=== PATIENT | male | born 1990 | race Caucasian/White ===

== ENCOUNTER 2018-01-30 15:31 | Emergency (ER) | payer BC ==
[2018-01-30 15:45] VITALS: BP 119/76; PULSE 77; RESP 18; TEMP 98.1
--- NOTE | 2018-01-30 17:44 | ED ---
General Adult HPI - General Chief complaint: Fall Stated complaint: rib injury riding snowboard Time Seen by Provider: 01/30/18 17:11 Source: patient, RN notes reviewed Mode of arrival: ambulatory Limitations: no limitations - History of Present Illness Initial comments: Patient's 27-year-old male presents into the emergency room today with a chief complaint of left-sided rib pain. Patient does admit to a snowboarding 4 days ago and landed hard on the left side. Patient states that he's had some pain to the left anterior ribs. He does admit that with certain movements the pain was worse patient admits that he sneezed earlier today had increased pain but then pain seemed to be feeling better afterwards. He states he is able to move better at this time. He states it is still locally tender on palpation to the anterior left rib. Patient denies any recent fever, chills, shortness of breath , chest pain, back pain, abdominal pain, nausea or vomiting, constipation or diarrhea, headaches or visual changes, or any other complaints. - Related Data Home Medications Medication Instructions Recorded Confirmed Ibuprofen [Motrin Ib] 600 mg PO Q6H PRN 01/30/18 01/30/18 Previous Rx's Medication Instructions Recorded Ibuprofen [Motrin] 600 mg PO Q6HR PRN #30 day 01/30/18 Allergies Allergy/AdvReac Type Severity Reaction Status Date / Time No Known Allergies Allergy Verified 01/30/18 15:42 Review of Systems ROS Statement: Those systems with pertinent positive or pertinent negative responses have been documented in the HPI. ROS Other: All systems not noted in ROS Statement are negative. Past Medical History Past Medical History: No Reported History History of Any Multi-Drug Resistant Organisms: None Reported Past Surgical History: Tonsillectomy Past Psychological History: No Psychological Hx Reported Smoking Status: Never smoker Past Alcohol Use History: Rare Past Drug Use History: None Reported General Exam - General Exam Comments Initial Comments: General: The patient is awake and alert, in no distress, and does not appear acutely ill. Eye: Pupils are equal, round and reactive to light, extra-ocular movements are intact. No nystagmus. There is normal conjunctiva bilaterally. No signs of icterus. Ears, nose, mouth and throat: There are moist mucous membranes and no oral lesions. Neck: The neck is supple, there is no tenderness or JVD. Cardiovascular: There is a regular rate and rhythm. No murmur, rub or gallop is appreciated. Respiratory: Lungs are clear to auscultation, respirations are non-labored, breath sounds are equal. No wheezes, stridor, rales, or rhonchi. Gastrointestinal: Soft, non-distended, non-tender abdomen without masses or organomegaly noted. Musculoskeletal: Normal ROM. Mild tenderness to the left anterior ribs. No step-off or deformity. No bruising. Strength 5/5. Sensation intact. Pulses equal bilaterally 2+. Neurological: A&O x 3. CN II-XII intact, There are no obvious motor or sensory deficits. Coordination appears grossly intact. Speech is normal. Skin: Skin is warm and dry and no rashes or lesions are noted. Psychiatric: Cooperative, appropriate mood & affect, normal judgment. Limitations: no limitations Course Vital Signs 01/30/18 15:42 Temperature 98.1 F Pulse Rate 77 Respiratory 18 Rate Blood Pressure 119/76 O2 Sat by Pulse 98 Oximetry Medical Decision Making - Medical Decision Making 27-year-old male presented to the emergency room with the chief complaint of left anterior rib pain. Patient does admit injury from snowboarding 4 days ago. States pain improved after sneezing earlier today. Patient chest x-ray reviewed is negative for any acute abnormality. Results were discussed with the patient. Patient will be discharged home. Patient be treated with anti- inflammatories. Advised return if symptoms increase or worsen. Disposition Clinical Impression: Fall, Rib contusion Disposition: HOME SELF-CARE Condition: Good Instructions: Rib Contusion (ED) Additional Instructions: Please use medication as discussed. Please follow-up with family doctor in the next 2 days of symptoms have not improved. Please return to emergency room if the symptoms increase or worsen or for any other concerns. Prescriptions: Ibuprofen [Motrin] 600 mg PO Q6HR PRN #30 day PRN Reason: Pain Is patient prescribed a controlled substance at d/c from ED?: No Referrals: None,Stated [Primary Care Provider] - 1-2 days Time of Disposition: 18:30
--- NOTE | 2018-01-30 18:32 | XR ---
EXAMINATION: XR chest 2V DATE AND TIME: 01/30/2018 5:30 PM CLINICAL INDICATION: L rib pain TECHNIQUE: PA and lateral COMPARISON: None. FINDINGS: The lungs are clear. The pleural spaces are negative. The cardiac silhouette is not enlarged. The remainder of the mediastinal silhouette is unremarkable. There is no fracture or malalignment. The skeletal structures and soft tissues are negative for acute findings. IMPRESSION: NO ACUTE PROCESS.
== END 2018-01-30 18:37 | disposition home or self-care (01) ==
LOC: EC 15:31
DX: S20.212A Contusion of left front wall of thorax, initial encounter (principal); V00.311A Fall from snowboard, initial encounter; Y93.23 Activity, snow (alpine) (downhill) skiing, snowboarding, sledding, tobogganing and snow tubing
CPT/HCPCS: 71046; 99283

== ENCOUNTER → 2022-12-26 | Outpatient (CLI) | payer OTHER ==
--- NOTE | 2022-12-26 14:32 | XR ---
EXAMINATION TYPE: XR elbow complete LT DATE OF EXAM: 12/26/2022 2:19 PM CLINICAL INDICATION:Male, 32 years old with history of WORK COMP, M77.02 L ELBOW, S56.812A L ARM; COMPARISON: None TECHNIQUE: The left elbow was examined in AP, lateral, and oblique projections. FINDINGS: No evidence of any acute osseous pathology, joint dislocation, or soft tissue swelling is n oted. No evidence of joint effusion is present. IMPRESSION: No evidence of acute fracture.
--- NOTE | 2022-12-26 14:34 | XR ---
EXAMINATION TYPE: XR forearm LT DATE OF EXAM: 12/26/2022 2:19 PM CLINICAL INDICATION:Male, 32 years old with history of WORK COMP, M77.02 L ELBOW, S56.812A L ARM; [facility] COMPARISON: None TECHNIQUE: XR forearm LT; forearm was examined in AP and lateral projections. FINDINGS: No acute osseous pathology, soft tissue swelling or joint dislocations are seen. IMPRESSION: No evidence of acute fracture.
== END | disposition home or self-care (01) ==
LOC: RADXRMAIN 13:53
PROVIDERS: ATTEND Emergency Medicine
DX: S56.812A Strain of other muscles, fascia and tendons at forearm level, left arm, initial encounter (principal); M77.02 Medial epicondylitis, left elbow; X58.XXXA Exposure to other specified factors, initial encounter

== ENCOUNTER → 2023-01-12 | Outpatient (CLI) | payer OTHER ==
--- NOTE | 2023-01-15 17:44 | MR ---
EXAMINATION TYPE: MR forearm LT wo con DATE OF EXAM: 01/12/2023 COMPARISON: Left forearm radiograph 12/26/2022 HISTORY: Left wrist/forearm/elbow pain for 1 month due to work injury. Marker placed on mass, palmar side, middle of forearm Multiplanar, multisequence images of the left forearm were acquired without contrast. FINDINGS: BONES/MARROW: Normal bone marrow signal. SOFT TISSUES: Myotendinous structures are normal. No anatomic variant. No bursal distention. No fluid collection. NEUROVASCULAR: Visualized neurovascular structures are normal. OTHER: Normal. No mass. No lymphadenopathy. IMPRESSION: Normal MRI left forearm. No mass or fluid collection.
== END | disposition home or self-care (01) ==
LOC: RADMRIMAIN 16:02
PROVIDERS: ATTEND Emergency Medicine
DX: S56.812A Strain of other muscles, fascia and tendons at forearm level, left arm, initial encounter (principal); M77.02 Medial epicondylitis, left elbow

== ENCOUNTER → 2024-01-30 | Outpatient (CLI) | payer BC ==
--- NOTE | 2024-01-30 09:45 | US ---
EXAMINATION TYPE: US abdomen complete DATE OF EXAM: 01/30/2024 COMPARISON: NONE CLINICAL INDICATION: Male, 33 years old with history of R109 Unspecified abdominal pain; LUQ Pain wit h diarrhea TECHNIQUE: Grayscale and color Doppler imaging of the abdomen was performed. FINDINGS: EXAM MEASUREMENTS: Liver Length: 13.0 cm Gallbladder Wall: 0.2 cm CBD: 0.7 cm, color Doppler imaging was utilized to isolate the common bile duct for measurement. Spleen: 13.2 cm Right Kidney: 11.2 x 4.5 x 4.4 cm Left Kidney: 11.4 x 6.6 x 4.5 cm STEAMING CABINET TENDER NOTES: Pancreas: wnl Liver: wnl Gallbladder: wnl Evidence for sonographic Lowe's sign: No CBD: Dilated extrahepatically Spleen: Slightly enlarged Right Kidney: wnl Left Kidney: wnl Upper IVC: wnl Abd Aorta: wnl The liver is homogenous. The intrahepatic portion of the IVC and proximal abdominal aorta are within normal limits. There is no evidence of cholelithiasis. Common bile duct is at the top end of matteo l for size. The visualized portions of the pancreas are homogenous. The spleen is top end of normal for size. Kidneys are symmetric and free of hydronephrosis. No renal lesions are seen. IMPRESSION: 1. No ultrasound evidence for acute process. 2. Common bile duct is at the top end of normal for size. 3. Spleen is at the top end of normal for size. [facility], , 01/30/2024 9:43 AM
== END | disposition home or self-care (01) ==
LOC: RADUSWWP 07:19
PROVIDERS: ATTEND Family Medicine
DX: R16.1 Splenomegaly, not elsewhere classified (principal); R19.7 Diarrhea, unspecified; R10.9 Unspecified abdominal pain
CPT/HCPCS: 76700

== ENCOUNTER → 2024-02-09 | Outpatient (CLI) | payer BC ==
--- NOTE | 2024-02-09 20:03 | CT ---
EXAMINATION TYPE: CT abdomen wo con DATE OF EXAM: 02/09/2024 4:29 PM COMPARISON: 01/30/2024 CLINICAL INDICATION: Male, 33 years old with history of R10.9 UNSPECIFIED ABDOMIN; left side rib pain TECHNIQUE: Axial CT abdomen wo con;Sagittal and coronal reformats were created on a separate worksta tion. Contrast used: mL of , (none if empty) Oral contrast used: without Oral Contrast (none if empty) CT DLP: 259.8 mGycm, Automated exposure control for dose reduction was used. FINDINGS: LOWER CHEST: Unremarkable ABDOMEN LIVER: Unremarkable GALLBLADDER AND BILE DUCTS: Unremarkable. PANCREAS: Unremarkable. SPLEEN: Unremarkable. ADRENAL GLANDS: Unremarkable. KIDNEYS AND URETERS: No evidence of hydronephrosis or renal calculus. The ureters are unremarkable. STOMACH AND BOWEL: No evidence of bowel obstruction. PERITONEUM/RETROPERITONEUM: No evidence of pneumoperitoneum or free fluid. VASCULATURE: No evidence of aortic aneurysm. MUSCULOSKELETAL: No acute osseous abnormalities, the left ribs appear intact. Schmorl's nodes at the level of T9 vertebral body involving the superior and inferior endplate and T10 superior endplate. LYMPH NODES: No gross evidence for lymphadenopathy. Right lower quadrant mesenteric enlarged lymph no elizabeth measuring up to 11 mm SOFT TISSUE/ABDOMINAL WALL: Unremarkable IMPRESSION: 1. No evidence or left upper quadrant acute process to explain the patient's pain. No rib fractures. 2. Schmorl nodes noted at the level of T9 and T10. Consider evaluation with MRI thoracic spine to ev aluate for bony edema. [facility], , 02/09/2024 8:00 PM
== END | disposition home or self-care (01) ==
LOC: RADCTMAIN 15:51
PROVIDERS: ATTEND Family Medicine
DX: R10.9 Unspecified abdominal pain (principal); R07.81 Pleurodynia
CPT/HCPCS: 74150

== ENCOUNTER → 2024-03-22 | Outpatient (CLI) | payer BC ==
--- NOTE | 2024-03-22 18:35 | MR ---
EXAMINATION TYPE: MR thoracic spine wo con DATE OF EXAM: 03/22/2024 5:54 PM COMPARISON: CT 02/09/2024. CLINICAL INDICATION: Male, 34 years old with history of S23.3XXD SPRAIN OF LIGAMENTS OF THORACIC SPIN E, HIGUERA; [facility], Left side rib pain x1-2 years, Unable to bend over due to pain, Abnormal CT TECHNIQUE: Multi planar, multi sequence imaging was performed utilizing: T1-weighted, short-tau inver doe recovery and T2-weighted of the thoracic spine. IV Contrast: mL (None, if empty) FINDINGS: Alignment: Alignment is within normal limits. Vertebral bodies have preserved heights. Spinal cord: Spinal cord is within normal limits for signal. Discs: Intervertebral disc signal is maintained. No evidence of significant spinal canal or neural fo raminal stenosis. There is no evidence of extradural defects or central spinal canal narrowing at any thoracic vertebral body level Osseous structures: T9-T10 Schmorl's nodes are again redemonstrated no bony edema identified on inver doe recovery sequences. No abnormal bony edema on inversion recovery sequences. Multilevel osteophyt e formation and facet joint arthropathy. Scattered disc space narrowing. Enlarged left soft tissue mass in the neck thought to be the thyroid gland measuring up to 38mm. IMPRESSION: 1. No evidence for significant spinal canal or neural foraminal stenosis. 2. Schmorl's nodes present at T9 and T10 without bony edema suggesting chronic change. No acute bony edema identified. 3. Enlarged left thyroid gland suggestive of nodule correlate with thyroid ultrasound. [facility], , 03/22/2024 6:33 PM
== END | disposition home or self-care (01) ==
LOC: RADMRIMAIN 17:07
PROVIDERS: ATTEND Family Medicine
DX: S23.3XXD Sprain of ligaments of thoracic spine, subsequent encounter (principal); M51.44 Schmorl's nodes, thoracic region; M47.894 Other spondylosis, thoracic region; X58.XXXD Exposure to other specified factors, subsequent encounter
CPT/HCPCS: 72146

== ENCOUNTER 2024-03-29 19:05 | Emergency (ER) | payer BC ==
[2024-03-29 19:38] VITALS: BP 127/92; PULSE 98; RESP 20; TEMP 97.5
--- NOTE | 2024-03-29 20:05 | ED ---
Abdominal Pain HPI - General Chief Complaint: Abdominal Pain Stated Complaint: Abd pain Time Seen by Provider: 03/29/24 19:48 Source: patient, RN notes reviewed Mode of arrival: ambulatory Limitations: no limitations - History of Present Illness Initial Comments: This is a 34-year-old male who presents to the emergency department for abdominal pain. Reports left mid to lower abdominal pain for the last few months. He has some loose stools associated with this. Denies any nausea or vomiting. He had an x-ray of his abdomen earlier today and they were concerned about a "line" on the left side of his abdomen and he was advised to come here for a CT scan. States that the pain is not very bothersome at this time. MD Complaint: abdominal pain - Related Data Home Medications Medication Instructions Recorded Confirmed Ibuprofen [Motrin Ib] 600 mg PO Q6H PRN 01/30/18 01/30/18 Previous Rx's Medication Instructions Recorded Ibuprofen [Motrin] 600 mg PO Q6HR PRN #30 day 01/30/18 Allergies Allergy/AdvReac Type Severity Reaction Status Date / Time acetaminophen [From Vicodin] AdvReac Itching Verified 03/29/24 19:38 hydrocodone [From Vicodin] AdvReac Itching Verified 03/29/24 19:38 Review of Systems ROS Statement: Those systems with pertinent positive or pertinent negative responses have been documented in the HPI. ROS Other: All systems not noted in ROS Statement are negative. Past Medical History Past Medical History: No Reported History History of Any Multi-Drug Resistant Organisms: None Reported Past Surgical History: Tonsillectomy Past Psychological History: No Psychological Hx Reported Smoking Status: Never smoker Past Alcohol Use History: Rare Past Drug Use History: None Reported General Exam Limitations: no limitations General appearance: alert, in no apparent distress Head exam: Present: atraumatic, normocephalic, normal inspection Respiratory exam: Present: normal lung sounds bilaterally. Absent: respiratory distress, wheezes, rales, rhonchi, stridor Cardiovascular Exam: Present: regular rate, normal rhythm, normal heart sounds. Absent: systolic murmur, diastolic murmur, rubs, gallop, clicks GI/Abdominal exam: Present: soft, normal bowel sounds. Absent: distended, tenderness, guarding, rebound, rigid Neurological exam: Present: alert, oriented X3, CN II-XII intact Psychiatric exam: Present: normal affect, normal mood Skin exam: Present: warm, dry, intact, normal color. Absent: rash Course Vital Signs 03/29/24 19:35 Temperature 97.5 F L Pulse Rate 98 Respiratory 20 Rate Blood Pressure 127/92 O2 Sat by Pulse 95 Oximetry Medical Decision Making - Medical Decision Making This is a 34-year-old male who presents to the emergency department for abdominal pain. Was pt. sent in by a medical professional or institution? @ -His PCP Did you speak to anyone other than the patient for history? @ -No Did you review nursing and triage notes? @ -Yes, and I agree, it is accurate with regards to the patient's symptoms. Were old charts reviewed? @ -No Differential Diagnosis? @ -Differential Abdominal Pain Men: Appendicitis, cholecystitis, diverticulosis, ischemic bowel, pancreatitis, hepatitis, UTI, gastroenteritis, AAA, incarcerated hernia, bowel obstruction, constipation, inflammatory bowel, hepatitis, peptic ulcer disease, splenic infarction, perforated viscus, testicular torsion, this is not meant to be an all-inclusive list EKG interpreted by me (3pts min.)? @ -Not obtained X-rays interpreted by me (1pt min.)? @ -Not obtained CT interpreted by me (1pt min.)? @ -CT scan of the abdomen and pelvis obtained. My interpretation identifies no evidence of bowel wall thickening or free air. U/S interpreted by me (1pt. min.)? @ -Not obtained What testing was considered but not performed? (CT, X-rays, U/S, labs)? Why? @ -None What meds were considered but not given? Why? @ -None Did you discuss the management of the patient with other professionals? @ -No Did you reconcile home meds? @ -No Was smoking cessation discussed for >3mins.? @ -No Was critical care preformed (if so, how long)? @ -No Were there social determinants of health that impacted care today? How? (Homelessness, low income, unemployed, alcoholism, drug addiction, transpor tation, low edu. Level, literacy, decrease access to med. care, retirement, rehab)? @ -No Was there de-escalation of care discussed even if they declined? (Discuss DNR or withdrawal of care, Hospice)? @ -No What co-morbidities impacted this encounter? (DM, HTN, Smoking, COPD, CAD, Cancer, CVA, Hep., AIDS, mental health diagnosis, sleep apnea, morbid obesity)? @ -None Was patient admitted / discharged? @ -Discharged. Lab work unremarkable. CT scan of the abdomen and pelvis reveals no acute process. The reason for the x-ray abnormality is not clear. Advised follow-up with his PCP for reevaluation of ongoing symptoms. Advised that he may need a referral to GI if they continue to be bothersome. Patient d ischarged home in stable condition. Case discussed with ED attending Dr. Lui. Return precautions reviewed in depth, the patient is instructed to return to the emergency department with any new, worsening, or concerning symptoms. Patient verbalized understanding. Undiagnosed new problem with uncertain prognosis? @ -None Drug Therapy requiring intensive monitoring for toxicity (Heparin, Nitro, Insulin, Cardizem)? @ -None Were any procedures done? @ -None Diagnosis/symptom? @ -Abdominal pain Acute, or Chronic, or Acute on Chronic? @ -Chronic Uncomplicated (without systemic symptoms) or Complicated (systemic symptoms)? @ -Uncomplicated Side effects of treatment? @ -None Exacerbation, Progression, or Severe Exacerbation] @ -Stable Poses a threat to life or bodily function? @ -No - Lab Data Result diagrams: 03/29/24 20:09 03/29/24 20:09 Lab Results 03/29/24 03/29/24 03/29/24 Range/Units 20:09 20:09 20:09 WBC 9.6 (3.8-10.6) k/uL RBC 5.38 (4.30-5.90) m/uL Hgb 16.2 (13.0-17.5) gm/dL Hct 47.8 (39.0-53.0) % MCV 88.8 (80.0-100.0) fL MCH 30.1 (25.0-35.0) pg MCHC 33.9 (31.0-37.0) g/dL RDW 11.9 (11.5-15.5) % Plt Count 291 (150-450) k/uL MPV 7.1 Neutrophils % 62 % Lymphocytes % 23 % Monocytes % 8 % Eosinophils % 4 % Basophils % 1 % Neutrophils # 5.9 (1.3-7.7) k/uL Lymphocytes # 2.2 (1.0-4.8) k/uL Monocytes # 0.8 (0-1.0) k/uL Eosinophils # 0.4 (0-0.7) k/uL Basophils # 0.1 (0-0.2) k/uL Sodium 138 (137-145) mmol/L Potassium 4.3 (3.5-5.1) mmol/L Chloride 102 (98-107) mmol/L Carbon Dioxide 28 (22-30) mmol/L Anion Gap 8 mmol/L BUN 17 (9-20) mg/dL Creatinine 1.21 (0.66-1.25) mg/dL Est GFR (CKD-EPI)AfAm 89 (>60 ml/min/1.73 sqM) Est GFR (CKD-EPI)NonAf 77 (>60 ml/min/1.73 sqM) Glucose 85 (74-99) mg/dL Plasma Lactic Acid Yordan 1.5 (0.7-2.0) mmol/L Calcium 9.6 (8.4-10.2) mg/dL Total Bilirubin 0.6 (0.2-1.3) mg/dL AST 42 (17-59) U/L ALT 49 (4-49) U/L Alkaline Phosphatase 57 (38-126) U/L Total Protein 7.2 (6.3-8.2) g/dL Albumin 4.6 (3.5-5.0) g/dL Amylase 48 (30-110) U/L Lipase 97 (23-300) U/L - Radiology Data Radiology results: report reviewed, image reviewed Disposition Clinical Impression: Abdominal pain Disposition: HOME SELF-CARE Instructions (If sedation given, give patient instructions): Abdominal Pain (ED) Additional Instructions: Return to the emergency department with any new, worsening, or concerning symptoms. Follow up with your primary care provider in 1-2 days. Is patient prescribed a controlled substance at d/c from ED?: No Referrals: Gabino Tavares MD [Primary Care Provider] - 1-2 days Time of Disposition: 22:11
[2024-03-29 20:25] LABS: Basophils # (A) 0.1 k/uL (0-0.2); Basophils % (A) 1 %; Eosinophils # (A) 0.4 k/uL (0-0.7); Eosinophils % (A) 4 %; HCT 47.8 % (39.0-53.0); HGB 16.2 gm/dL (13.0-17.5); Lymphocytes # (A) 2.2 k/uL (1.0-4.8); Lymphocytes % (A) 23 %; MCH 30.1 pg (25.0-35.0); MCHC 33.9 g/dL (31.0-37.0); MCV 88.8 fL (80.0-100.0); Mean Platelet Volume 7.1; Monocytes # (A) 0.8 k/uL (0-1.0); Monocytes % (A) 8 %; Neutrophils # (A) 5.9 k/uL (1.3-7.7); Neutrophils % (A) 62 %; Platelet Count 291 k/uL (150-450); RBC 5.38 m/uL (4.30-5.90); RDW 11.9 % (11.5-15.5); WBC 9.6 k/uL (3.8-10.6)
[2024-03-29 20:44] LABS: ALT 49 U/L (4-49); AST 42 U/L (17-59); African American GFR (CKD) 89 (>60 ml/min/1.73 sqM); Albumin 4.6 g/dL (3.5-5.0); Alkaline Phosphatase 57 U/L (38-126); Amylase 48 U/L (30-110); Anion Gap 8 mmol/L; Blood Urea Nitrogen 17 mg/dL (9-20); Calcium 9.6 mg/dL (8.4-10.2); Carbon Dioxide 28 mmol/L (22-30); Chloride 102 mmol/L (98-107); Glucose 85 mg/dL (74-99); Lipase 97 U/L (23-300); Non-African American GFR(CKD) 77 (>60 ml/min/1.73 sqM); Potassium 4.3 mmol/L (3.5-5.1); Sodium 138 mmol/L (137-145); Total Bilirubin 0.6 mg/dL (0.2-1.3); Total Protein 7.2 g/dL (6.3-8.2)
--- NOTE | 2024-03-29 21:51 | CT ---
EXAMINATION TYPE: CT abdomen pelvis w con DATE OF EXAM: 03/29/2024 8:35 PM COMPARISON: 02/09/2024 CLINICAL INDICATION: Male, 34 years old with history of Left sided abdominal pain, Left side abdomina l pain TECHNIQUE: Axial images were obtained from above the diaphragm to the pubic rami in the axial plane a t 5 mm thick sections. Reconstructed images are reviewed on the computer in the coronal plane. CONTRAST: 100 mL of Isovue 300. Study performed without Oral Contrast DLP: 799.3 mGycm, Automated exposure control for dose reduction was used. FINDINGS: Limited CT sections are obtained the lung bases. The lung bases are clear. CT ABDOMEN: Liver: Normal Spleen: Normal Pancreas: Normal Adrenal glands: The adrenal glands are normal. Gallbladder: Normal Kidneys: No masses are evident. No hydronephrosis is present. No cysts are present. Delayed images were obtained through the kidneys, which remain unremarkable. Aorta: Normal Inferior vena cava: Normal. CT PELVIS: Loops of bowel within the abdomen and pelvis are normal. There is redundancy of the sigmoid colon. S uspicious diverticular changes. This study is without oral contrast limiting bowel evaluation. Appendix: Normal as visualized. Urinary bladder: Normal. Genitourinary structures: Prostate is normal Osseous structures: No suspicious lytic or sclerotic lesions. IMPRESSION: 1. Unremarkable CT abdomen and pelvis [facility], Workstation: [facility], 03/29/2024 9:49 PM
== END 2024-03-29 22:20 | disposition home or self-care (01) ==
LOC: EC 19:05
DX: R10.32 Left lower quadrant pain (principal); Z88.5 Allergy status to narcotic agent; Z88.6 Allergy status to analgesic agent
CPT/HCPCS: 36415; 80053; 82150; 83605; 83690; 85025; 74177; 99284; Q9967